=== PATIENT | female | born 2000 | race Caucasian/White ===

== ENCOUNTER 2021-01-06 15:13 | Outpatient (REF) | payer MEDICAID, SELFPAY ==
[2021-01-06 16:20] LABS: MANUAL DIFF FLAG NO
[2021-01-06 16:24] LABS: Basophils Percent Auto 0.4 % (0-2); Eosinophils Percent Auto 0.6 % (0-4); Hematocrit 41.8 % (37-47); Hemoglobin 13.2 g/dl (12.0-16.0); Imm Gran Abs Auto 0.01 X10*3/uL (0.00-0.03); Imm Gran Pct Auto 0.2 % (0.0-0.4); Lymphocytes Absolute Auto 1.7 X10*3/uL (1.2-4.9); Lymphocytes Percent Auto 34.5 % (20-40); Mean Corpuscular HGB Conc 31.6 g/dl (31.0-35.0); Mean Corpuscular Hemoglobin 25.4 pg (27.0-33.0); Mean Corpuscular Volume 80.4 fL (80-98); Mean Platelet Volume 10.1 fL (9.4-12.3); Monocytes Absolute Auto 0.4 X10*3/uL (0.1-1.2); Monocytes Percent Auto 7.5 % (2-11); Neutrophils Absolute Auto 2.8 X10*3/uL (2.0-8.3); Neutrophils Percent Auto 56.8 % (45-73); Platelet Count 365 X10*3/uL (160-400); Red Cell Distribution Width 13.3 % (11.0-16.0)
[2021-01-06 16:52] LABS: Alanine Aminotransferase 21 U/L (0-31); Albumin Level 4.4 g/dL (3.5-5.0); Alkaline Phosphatase 60 U/L (39-117); Anion Gap 13 (12-20); Aspartate Amino Transferase 23 U/L (5-31); Bilirubin Total 0.4 mg/dL (0.0-1.0); Blood Urea Nitrogen 12 mg/dL (9-16); Calcium 9.3 mg/dL (8.4-10.2); Carbon Dioxide 25 mmol/L (22-29); Chloride 105 mmol/L (96-108); Estimated Glomerular Filt Rate > 60; Glucose Random 95 mg/dL (60-115); Potassium 3.8 mmol/L (3.3-5.1); Sodium 139 mmol/L (135-145); Total Protein 7.2 g/dL (6.5-8.0)
[2021-01-06 17:14] LABS: TSH reflex Free T4 0.37 uIU/mL (0.32-4.0)
== END 2021-01-06 15:14 | disposition home or self-care (01) ==
LOC: HO.LAB 15:13
PROVIDERS: PCP Internal Medicine; Visit Provider Internal Medicine
DX: F63.0 Pathological gambling (principal); F41.8 Other specified anxiety disorders; F51.02 Adjustment insomnia; L74.510 Primary focal hyperhidrosis, axilla
CPT/HCPCS: 36415; 80053; 84443; 85025

== ENCOUNTER 2021-09-08 16:07 | Outpatient (REF) | payer OTHER, SELFPAY ==
[2021-09-08 16:26] LABS: MANUAL DIFF FLAG NO
[2021-09-08 16:55] LABS: Basophils Percent Auto 0.3 % (0-2); Eosinophils Absolute Auto 0.1 X10*3/uL (0.0-0.4); Eosinophils Percent Auto 1.4 % (0-4); Hematocrit 39.2 % (37.0-47.0); Hemoglobin 12.4 g/dl (12.0-16.0); Imm Gran Abs Auto 0.01 X10*3/uL (0.00-0.03); Imm Gran Pct Auto 0.3 % (0.0-0.4); Lymphocytes Absolute Auto 1.5 X10*3/uL (1.2-4.9); Lymphocytes Percent Auto 43.8 % (20-40); Mean Corpuscular HGB Conc 31.6 g/dl (31.0-35.0); Mean Corpuscular Hemoglobin 25.6 pg (27.0-33.0); Mean Corpuscular Volume 80.8 fL (80.0-98.0); Mean Platelet Volume 9.8 fL (9.4-12.3); Monocytes Absolute Auto 0.3 X10*3/uL (0.1-1.2); Monocytes Percent Auto 8.6 % (2-11); Neutrophils Absolute Auto 1.6 x10*3/uL (2.0-8.3); Neutrophils Percent Auto 45.6 % (45-73); Platelet Count 323 X10*3/uL (160-400); Red Blood Count 4.85 X10*6/uL (4.20-5.50); Red Cell Distribution Width 12.9 % (11.0-16.0); White Blood Count 3.5 X10*3/uL (4.8-10.8)
[2021-09-08 17:02] LABS: Prothrombin Time 11.9 SEC (9.9-13.0)
[2021-09-08 17:28] LABS: Alanine Aminotransferase 12 U/L (0-31); Albumin Level 4.4 g/dL (3.5-5.0); Alkaline Phosphatase 64 U/L (39-117); Anion Gap 8 (12-20); Aspartate Amino Transferase 16 U/L (5-31); Bilirubin Total 0.3 mg/dL (0.0-1.0); Blood Urea Nitrogen 13 mg/dL (9-16); Calcium 9.8 mg/dL (8.4-10.2); Carbon Dioxide 29 mmol/L (22-29); Chloride 108 mmol/L (96-108); Estimated Glomerular Filt Rate > 60; Glucose Random 64 mg/dL (60-115); Potassium 4.1 mmol/L (3.3-5.1); Sodium 141 mmol/L (135-145); Total Protein 7.4 g/dL (6.5-8.0)
== END 2021-09-08 16:08 | disposition home or self-care (01) ==
LOC: HO.LAB 16:07
PROVIDERS: PCP Internal Medicine; Visit Provider Internal Medicine
DX: F33.42 Major depressive disorder, recurrent, in full remission (principal); K92.0 Hematemesis; N92.0 Excessive and frequent menstruation with regular cycle; R04.0 Epistaxis; R04.2 Hemoptysis
CPT/HCPCS: 36415; 80053; 85025; 85610; 85730

== ENCOUNTER 2022-01-07 13:32 | Outpatient (REF) | payer OTHER, SELFPAY ==
[2022-01-07 14:35] LABS: HCG Quantitative < 2 mIU/mL
== END 2022-01-07 13:33 | disposition home or self-care (01) ==
LOC: HO.LAB 13:32
PROVIDERS: PCP Internal Medicine; Visit Provider Internal Medicine
DX: Z32.02 Encounter for pregnancy test, result negative (principal)
CPT/HCPCS: 36415; 84702

== ENCOUNTER 2023-06-21 10:13 | Outpatient (REF) | payer OTHER, SELFPAY ==
[2023-06-21 11:45] LABS: ~Hepatitis B Surface Antibody REACTIVE (Nonreactive)
[2023-06-23 05:37] LABS: Mumps Virus IgG Antibody >300.00 AU/mL; Rubella IgG Antibody 6.37 Index; Rubeola IgG (Measles) >300.00 AU/mL
[2023-06-23 18:08] LABS: TS Negative Control Passed; TS Panel A 0; TS Panel B 0; TS Positive Control Passed; TSpotTB Negative (Negative)
== END 2023-06-21 10:14 | disposition home or self-care (01) ==
LOC: HO.10HDL 10:13
PROVIDERS: Visit Provider Internal Medicine
DX: Z01.84 Encounter for antibody response examination (principal); Z11.1 Encounter for screening for respiratory tuberculosis; F32.5 Major depressive disorder, single episode, in full remission
CPT/HCPCS: 36415; 86481; 86706; 86735; 86762; 86765; 86787

== ENCOUNTER 2024-12-10 14:36 | Outpatient (REF) | payer OTHER, SELFPAY ==
[2024-12-10 22:09] LABS: CT PCR NOT DETECTED (Not Detect.); NG PCR NOT DETECTED (Not Detect.)
[2024-12-18 11:32] LABS: HPV Genotype 16 Negative (Negative); HPV Genotype 18 Negative (Negative); HPV High Risk Negative (Negative)
== END 2024-12-10 14:37 | disposition home or self-care (01) ==
LOC: HO.LNP 14:36
PROVIDERS: PCP Internal Medicine; Visit Provider Obstetrics & Gynecology
DX: Z87.42 Personal history of other diseases of the female genital tract (principal); Z20.2 Contact with and (suspected) exposure to infections with a predominantly sexual mode of transmission
CPT/HCPCS: 87491; 87591; 87626; 88175

== ENCOUNTER 2024-12-10 14:36 | Outpatient (AMB) | payer OTHER, SELFPAY ==
--- NOTE | 2024-12-10 14:39 | MHC.OFFVIS ---
Vital Signs 12/10/24 15:02 Height 5 ft Weight 145 lb BMI 28.3 BP 110/74 Intake Visit Reasons: Colposcopy Manager Of Digital Required: No Information Interpreted: non-clinical & clinical Accompanied by: Self / Same As Patient Allergies No Known Allergies Allergy (Unverified 12/10/24 14:57) Is last menstrual period known: Yes Last menstrual period: 12/06/24 HPI Comments Details: The patient is referred from PCP regarding history of high-grade MARKO in 12/28, followed by biopsy showing moderate dysplasia status post laser vaporization of the cervix in 03/30, according to scattered notes on the patient is [facility], no records available. Since then the patient had a co testing with? [facility], no records available. Last co testing was in ? 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 Sexual orientation: Straight/Heterosexual Gender identity: Female Female Reproductive History Menstrual Age of Menarche: 9 Date of last menstrual period: 12/06/24 Review of Systems Const All systems reviewed & are unremarkable except as noted in HPI and below Reports as per HPI and Reports no additional complaints GI Reports no additional complaints Reports no additional complaints Physical Exam General: Yes no CVA tenderness External Female Exam: normal external appearance and normal appearance of the urethra Speculum Exam - Vagina: normal appearance of the vagina, normal palpation, no lesions and no masses Speculum Exam - Cervix: normal appearance of the cervix, normal palpation, no lesions, no masses and nontender Bimanual exam- vagina & uterus: normal bimanual exam, normal palpation, uterine size normal, normal palpation, uterine shape normal, No Cervical tenderness present and non-tender Bimanual Exam- Adnexa, other: normal adnexae Back/Spine/Pelvis Back: no CVA tenderness Assessment & Plan Assessment & Plan (1) History of abnormal cervical Pap smear: Comment: VANESSA 2 in 12/28 status post laser vaporization Abnormal Pap in 12/29, no records available Code(s): Z87.42 - Personal history of other diseases of the female genital tract Category: Medical Plan: Co testing done, medical record release form signed by the patient in an effort to get the information of all cytology/pathology results from 12/28 till now and treat accordingly. Instructions given the patient to schedule a 2 week follow-up appointment will review the records and the results the co testing and treat accordingly. All questions answered, the patient verbalized understanding Coding Level of Care Code New Pt Level 3 (22237) Diagnoses History of abnormal cervical Pap smear Z87.42
[2024-12-10 15:02] VITALS: BP 110/74; BMI 28.3
== END 2024-12-10 15:35 | disposition home or self-care (01) ==
LOC: HO.HWS 14:36
PROVIDERS: PCP Internal Medicine; Visit Provider Obstetrics & Gynecology
DX: Z87.42 Personal history of other diseases of the female genital tract (principal)
CPT/HCPCS: 99203

== ENCOUNTER 2025-01-02 11:31 | Outpatient (REF) | payer OTHER, SELFPAY ==
[2025-01-03 07:56] LABS: Syphilis Screen Nonreactive (Nonreactive)
[2025-01-03 08:15] LABS: HBsAGNum1 0.27 S/CO (0.00-0.99); HIV AB/AG Nonreactive (Nonreactive); HIV Num 1 0.11 S/CO (0.00-0.99); Hepatitis B Surface Antigen Negative (Negative)
== END 2025-01-02 11:32 | disposition home or self-care (01) ==
LOC: HO.LAB 11:31
PROVIDERS: PCP Internal Medicine; Visit Provider Obstetrics & Gynecology
DX: N76.0 Acute vaginitis (principal); B96.89 Other specified bacterial agents as the cause of diseases classified elsewhere
CPT/HCPCS: 86780; 87340; 87389

== ENCOUNTER 2025-01-02 11:31 | Outpatient (AMB) | payer OTHER, SELFPAY ==
[2025-01-02 11:35] VITALS: BMI 28.3
--- NOTE | 2025-01-02 11:35 | MHC.OFFVIS ---
Vital Signs 01/02/25 11:35 Height 5 ft Weight 145 lb BMI 28.3 Intake Visit Reasons: pap result/ ? colpo Speech Language Pathologist Required: No Information Interpreted: non-clinical & clinical Accompanied by: Self / Same As Patient Allergies No Known Allergies Allergy (Unverified 01/02/25 11:38) HPI Comments Details: Presenting for follow-up. Co testing done in 12/30 was negative. History of VANESSA 2 status post laser vaporization in 12/28 followed by abnormal Pap smear in 12/29 status post colpo biopsy, no records available The patient is sign medical release form which was sent to [facility], no records received The patient is complaining of vulvovaginal discharge associated with foul odor no itching PFSH Surgical History History of ear surgery Family History Maternal Grandfather Colon cancer Ovarian cancer Mother Heart disease Social History Household Members: Significant Other Housing: House Alcohol intake: current Alcohol intake frequency: holidays/special occasions only e-Cigarette/Vaping Use: Currently Using Current occupational status: employed 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 Sexual orientation: Straight/Heterosexual Gender identity: Female Female Reproductive History Menstrual Age of Menarche: 9 Review of Systems Const All systems reviewed & are unremarkable except as noted in HPI and below Physical Exam Vital Signs: BMI result Body Mass Index 28.3 General: Yes no CVA tenderness External Female Exam: normal external appearance and normal appearance of the urethra Speculum Exam - Vagina: normal appearance of the vagina, normal palpation, no lesions and no masses Speculum Exam - Cervix: normal appearance of the cervix, normal palpation, no lesions, no masses and nontender Bimanual exam- vagina & uterus: normal bimanual exam, normal palpation, uterine size normal, normal palpation, uterine shape normal, No Cervical tenderness present and non-tender Bimanual Exam- Adnexa, other: normal adnexae Back/Spine/Pelvis Back: no CVA tenderness Assessment & Plan Assessment & Plan (1) History of abnormal cervical Pap smear: Comment: VANESSA 2 in 12/28 status post laser vaporization Abnormal Pap in 12/29, no records available Code(s): Z87.42 - Personal history of other diseases of the female genital tract Category: Medical Plan: Will attempt to receiving medical record from [facility] another time, meanwhile schedule repeat co testing and six-month. Instructions given the patient to get her medical record from [facility] in person and to schedule a 2 week telehealth visit appointment to review the previous medical record and heavy plan of care. All questions answered, the patient verbalized understanding (2) Bacterial vaginosis: Code(s): N76.0 - Acute vaginitis; B96.89 - Other specified bacterial agents as the cause of diseases classified elsewhere Category: Medical Plan: GC and chlamydia cultures with BV panel taken. Per CDC recommendation, will screen for STI, HepBs Ag, HIV, RPR, Hep C Ab ordered. Will treat with Flagyl 500 mg p.o. b.i.d. x 7 days, Instructions given to the patient to refrain from sexual activity or to use condoms consistently and correctly during the BV treatment regimen, not to douch, it might increase the risk for relapse, and to call if symptoms persist or recur. Orders: Orders Syphilis Screen Today B96.89 - Other specified bacterial agents as the cause of diseases classified elsewhere, N76.0 - Acute vaginitis Hepatitis B Surface Antigen Today B96.89 - Other specified bacterial agents as the cause of diseases classified elsewhere, N76.0 - Acute vaginitis HIV Ab/Ag Today B96.89 - Other specified bacterial agents as the cause of diseases classified elsewhere, N76.0 - Acute vaginitis Medications: New metronidazole 500 mg PO BID 7 days 14 tabs 0RF Coding Level of Care Code Est Pt Level 3 (19036) Diagnoses History of abnormal cervical Pap smear Z87.42 Bacterial vaginosis N76.0; B96.89
== END 2025-01-02 11:58 | disposition home or self-care (01) ==
LOC: HO.HWS 11:31
PROVIDERS: PCP Internal Medicine; Visit Provider Obstetrics & Gynecology
DX: Z87.42 Personal history of other diseases of the female genital tract (principal); N76.0 Acute vaginitis; B96.89 Other specified bacterial agents as the cause of diseases classified elsewhere
CPT/HCPCS: 99213

== ENCOUNTER 2025-01-02 11:54 | Outpatient (REF) | payer OTHER, SELFPAY ==
[2025-01-02 17:20] LABS: Bacterial Vaginosis PCR POSITIVE (Negative); Candida Group PCR NOT DETECTED (Not Detect); Candida glab krusei PCR NOT DETECTED (Not Detect); Trichomonas vaginalis PCR NOT DETECTED (Not Detect)
[2025-01-02 18:01] LABS: CT PCR NOT DETECTED (Not Detect.); NG PCR NOT DETECTED (Not Detect.)
== END 2025-01-02 11:55 | disposition home or self-care (01) ==
LOC: HO.LNP 11:54
PROVIDERS: Visit Provider Obstetrics & Gynecology
DX: N76.0 Acute vaginitis (principal); B96.89 Other specified bacterial agents as the cause of diseases classified elsewhere
CPT/HCPCS: 81515; 87491; 87591

== ENCOUNTER 2025-01-15 15:32 | Outpatient (REF) | payer OTHER, SELFPAY ==
[2025-01-16 03:57] LABS: CT PCR NOT DETECTED (Not Detect.); NG PCR NOT DETECTED (Not Detect.)
[2025-01-16 11:02] LABS: Bacterial Vaginosis PCR POSITIVE (Negative); Candida Group PCR DETECTED (Not Detect); Candida glab krusei PCR NOT DETECTED (Not Detect); Trichomonas vaginalis PCR NOT DETECTED (Not Detect)
== END 2025-01-15 15:33 | disposition home or self-care (01) ==
LOC: HO.LNP 15:32
PROVIDERS: PCP Internal Medicine; Visit Provider Obstetrics & Gynecology
DX: N76.0 Acute vaginitis (principal)
CPT/HCPCS: 81515; 87491; 87591

== ENCOUNTER 2025-01-15 15:32 | Outpatient (AMB) | payer OTHER, SELFPAY ==
--- NOTE | 2025-01-15 15:39 | MHC.OFFVIS ---
Intake Visit Reasons: vaginal discharge Consumer Electronic Retail Specialist: Consumer Electronic Retail Specialist Present (May Kee) Accompanied by: Self / Same As Patient Allergies No Known Allergies Allergy (Verified 01/15/25 15:39) HPI Comments Details: Presenting complaining of vulvovaginal itching/burning associated with cottage cheese discharge The patient requested medical records from [facility]; review of incoming medical record include the followin/20 LGSIL can not rule out high-grade HPV negative, no colpo biopsy available 12/28 high-grade MARKO HPV positive, no pathology for in cervical biopsy done but the patient states that she had VANESSA 2 on cervical biopsy pathology 04/30 laser vaporization of the cervix [facility] Surgical History History of ear surgery Family History Maternal Grandfather Colon cancer Ovarian cancer Mother Heart disease Social History Household Members: Significant Other Housing: House Alcohol intake: current Alcohol intake frequency: holidays/special occasions only e-Cigarette/Vaping Use: Currently Using Current occupational status: employed 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 Sexual orientation: Straight/Heterosexual Gender identity: Female Female Reproductive History Menstrual Age of Menarche: 9 Review of Systems Const All systems reviewed & are unremarkable except as noted in HPI and below Physical Exam General: Yes no CVA tenderness External Female Exam: normal external appearance and normal appearance of the urethra Speculum Exam - Vagina: normal appearance of the vagina, normal palpation, no lesions and no masses Speculum Exam - Cervix: normal appearance of the cervix, normal palpation, no lesions, no masses and nontender Bimanual exam- vagina & uterus: normal bimanual exam, normal palpation, uterine size normal, normal palpation, uterine shape normal, No Cervical tenderness present and non-tender Bimanual Exam- Adnexa, other: normal adnexae Back/Spine/Pelvis Back: no CVA tenderness Assessment & Plan Assessment & Plan (1) Vulvovaginitis: Code(s): N76.0 - Acute vaginitis Category: Medical Plan: GC/CT, Bacterial Vaginosis panel taken, Terazol 0.8% q.h.s. for 3 days with Lotrisone cream b.i.d. for 5 days was sent to the patient's pharmacy. The patient was instructed to call if symptoms don't improve in 48 hours. (2) History of abnormal cervical Pap smear: Comment: VANESSA 2 in 12/28 status post laser vaporization Abnormal Pap in 12/29, no records available Code(s): Z87.42 - Personal history of other diseases of the female genital tract Category: Medical Plan: Reviewed with the patient the incoming records since the patient had VANESSA 2 status post laser vaporization in 04/30 with no follow-up till 12/30 ; although co testing was negative, recommended colpo biopsy ECC. Instructions given the patient to schedule colposcopy within 1-2 weeks. All questions answered, the patient verbalized understanding Orders: Orders Bacterial Vaginosis Panel Today N76.0 - Acute vaginitis CT NG by PCR Today N76.0 - Acute vaginitis Medications: New terconazole 0.8% 1 appful vaginal BEDTIME 3 days 20 grams 0RF clotrimazole-betamethasone 1-0.05 % 1 appl topical BID 5 days 45 grams 0RF Coding Level of Care Code Est Pt Level 3 (37996) Diagnoses Vulvovaginitis N76.0 History of abnormal cervical Pap smear Z87.42
== END 2025-01-15 16:07 | disposition home or self-care (01) ==
LOC: HO.HWS 15:32
PROVIDERS: PCP Internal Medicine; Visit Provider Obstetrics & Gynecology
DX: N76.0 Acute vaginitis (principal); Z87.42 Personal history of other diseases of the female genital tract
CPT/HCPCS: 99213

== ENCOUNTER 2025-01-31 11:18 | Outpatient (AMB) | payer OTHER, SELFPAY ==
--- NOTE | 2025-01-31 11:26 | MHC.OFFVIS ---
Intake Visit Reasons: Colposcopy Press Machine Operator: Press Machine Operator Present (Vidhya) Accompanied by: Self / Same As Patient Allergies No Known Allergies Allergy (Verified 01/31/25 11:26) HPI Comments Details: Presenting for colposcopy for history of abnormal Pap smear showing the followin/20 LGSIL can not rule out high-grade HPV negative, no colpo biopsy available 12/28 high-grade MARKO HPV positive, no pathology for in cervical biopsy done but the patient states that she had VANESSA 2 on cervical biopsy pathology 04/30 laser vaporization of the cervix 12/30 co testing was negative PFSH Surgical History History of ear surgery Family History Maternal Grandfather Colon cancer Ovarian cancer Mother Heart disease Social History Household Members: Significant Other Housing: House Alcohol intake: current Alcohol intake frequency: holidays/special occasions only e-Cigarette/Vaping Use: Currently Using Current occupational status: employed 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 We thoroughly discussed the procedure itself, including its details, alternatives, and all associated risks. This included but not limited to the following complications such as bleeding, infection, and injury to the vagina, bladder, and vessels, as well as the potential need for transfusion with all its associated risks. Subsequently, the patient sign the consent. Pap smear result: Negative co testing, history of high-grade MARKO Urine test in office = Negative Procedure: During the procedure, the following steps were performed: A speculum was inserted, and acetic acid was applied. Colposcopy was conducted, allowing visualization of the transformation zone. Acetowhite lesions were identified at the 1 o'clock position. Cervical biopsies were obtained from the 1 o'clock position, followed by an endocervical curettage (ECC). Vaginoscopy of the upper vagina revealed no evidence of aceto-white lesions. Hemostasis was achieved using Monsel solution, and the patient tolerated the procedure well. Post-Procedure Instructions: The patient was advised to promptly contact the office or the after hours answering service or go to the emergency room if experiencing a temperature exceeding 100.4?F, abdominal pain, nausea/vomiting, or bleeding. Additionally, the patient was instructed to abstain from vaginal intercourse and bathtub use. The patient confirmed understanding of these instructions. Discharge Instructions: The patient was instructed to schedule a follow-up appointment in 2 weeks for further evaluation and management. Please note that this note was generated using a voice recognition program, and errors may have occurred during ornamental iron worker helper. Procedure code (CPT) selection complete Assessment & Plan Assessment & Plan (1) History of abnormal cervical Pap smear: Comment: VANESSA 2 in 12/28 status post laser vaporization Abnormal Pap in 12/29, no records available Code(s): Z87.42 - Personal history of other diseases of the female genital tract Category: Medical Plan: Colposcopy done, see procedure noteq Orders: Orders AMB Colposcopy Today Z87.42 - Personal history of other diseases of the female genital tract Coding Level of Care Code Procedure Only Diagnoses History of abnormal cervical Pap smear Z87.42
== END 2025-01-31 12:41 | disposition home or self-care (01) ==
LOC: HO.HWS 11:18
PROVIDERS: PCP Internal Medicine; Visit Provider Obstetrics & Gynecology
DX: Z87.42 Personal history of other diseases of the female genital tract (principal)
CPT/HCPCS: 57454

== ENCOUNTER 2025-01-31 11:18 | Outpatient (REF) | payer OTHER, SELFPAY | END 2025-01-31 11:19 | disposition home or self-care (01) | LOC: HO.LNP 11:18 | PROVIDERS: PCP Internal Medicine; Visit Provider Obstetrics & Gynecology | DX: Z87.42 Personal history of other diseases of the female genital tract (principal) | CPT/HCPCS: 57454; 88305 ==

== ENCOUNTER 2025-02-05 09:54 | Outpatient (AMB) | payer OTHER, SELFPAY ==
--- NOTE | 2025-02-05 10:07 | MHC.OFFVIS ---
Intake Visit Reasons: pelvic exam Coal Trimmer Machine Operator: Coal Trimmer Machine Operator Present (Vidhya) Accompanied by: Self / Same As Patient Allergies No Known Allergies Allergy (Verified 02/05/25 10:07) HPI Comments Details: Presenting post colpo for follow-up, no pelvic pain, no fever, no abdominal distention, no nausea or vomiting , positive bowel movement and flatus, no other concerns. On regular diet. The patient is doing well with no complaints. The pathology showed the following: A. Endocervix, curettage: Squamous and endocervical glandular mucosa; negative for dysplasia (see comment). B. Cervix, 1:00, biopsy: Squamous mucosa; negative for dysplasia; no endocervical glandular component present. Comment: The patient's previous negative Pap test ([id number]) concurs with the current biopsy. 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 Sexual orientation: Straight/Heterosexual Gender identity: Female Female Reproductive History Menstrual Age of Menarche: 9 Review of Systems Const All systems reviewed & are unremarkable except as noted in HPI and below Physical Exam General: Yes no CVA tenderness External Female Exam: normal external appearance and normal appearance of the urethra Speculum Exam - Vagina: normal appearance of the vagina, normal palpation, no lesions and no masses Speculum Exam - Cervix: normal appearance of the cervix, normal palpation, no lesions, no masses and nontender Bimanual exam- vagina & uterus: normal bimanual exam, normal palpation, uterine size normal, normal palpation, uterine shape normal, No Cervical tenderness present and non-tender Bimanual Exam- Adnexa, other: normal adnexae Back/Spine/Pelvis Back: no CVA tenderness Assessment & Plan Assessment & Plan (1) History of abnormal cervical Pap smear: Comment: VANESSA 2 in 12/28 status post laser vaporization Abnormal Pap in 12/29, no records available Code(s): Z87.42 - Personal history of other diseases of the female genital tract Category: Medical Plan: Discussed with the patient the pathology results of the colposcopy biopsies & endocervical curettage (negative with evidence of adipose tissue possible contaminant versus pericervical tissue). Discussed with the patient the sensitivity specificity, positive and negative predictive value in detecting cervical cancer in addition discussed the regression, persistence and progression rates. Also discussed with the patient that the source of adipose tissue could be contaminant versus paricervical tissue, instructions were given to patient to call in case of pelvic pain, fever above 100.4, nausea or vomiting, abdominal distention. Recommended co-testing in 12 months, if cytology and or HPV are abnormal will proceed was colposcopy biopsy and endocervical curettage. Instructions given to the patient to schedule a co test appointment in 1 year. All questions answered the patient verbalized understanding. Coding Level of Care Code Est Pt Level 3 (07506) Diagnoses History of abnormal cervical Pap smear Z87.42
== END 2025-02-05 10:15 | disposition home or self-care (01) ==
LOC: HO.HWS 09:54
PROVIDERS: PCP Internal Medicine; Visit Provider Obstetrics & Gynecology
DX: Z87.42 Personal history of other diseases of the female genital tract (principal)
CPT/HCPCS: 99213